=== PATIENT | male | born 1995 | race Caucasian/White ===

== ENCOUNTER 2020-12-20 18:30 | Emergency (ER) | payer MEDICAID ==
[~2020-12-20] VITALS: Ht 180.3 cm; Wt 79.1 kg
[2020-12-20 19:00] VITALS: BP 128/79
--- NOTE | 2020-12-20 19:04 | NUR ---
PT TO WAIT IN LOBBY
--- NOTE | 2020-12-20 20:46 | NUR ---
PT AMBULATED TO BED 11.
[2020-12-20 20:50] VITALS: BP 128/79
--- NOTE | 2020-12-20 20:50 | NUR ---
25 YO M BIB SELF WITH C/C OF R ANKLE PAIN 8/10 S/P INJURY WHILE RUNNING X1 WK. PT STATES IT HURTS MORE WHEN HE PUTS WEIGHTS ON FOOT, BETTER WHEN SITTING. TOOK IBUPROFEN FOR PAIN, SOMEWHAT HELPED PER PT. DENIES HX AND RX. NKA
[2020-12-20] MEDS ORDERED: IBUP-2213 PO (21:16)
[2020-12-20] MEDS ORDERED: ACET-8386 PO (21:16)
--- NOTE | 2020-12-20 21:38 | NUR ---
Patient discharged with v/s stable. Written and verbal after care instructions given and explained. Patient alert, oriented and verbalized understanding of instructions. Ambulatory with steady gait. All questions addressed prior to discharge. ID band removed. Patient advised to follow up with PMD. Rx of NORCO AND MOTRIN given. Patient educated on indication of medication including possible reaction and side effects. Opportunity to ask questions provided and answered.
== END 2020-12-20 21:38 | disposition home or self-care (01) ==
LOC: MED 18:30
DX: S93.401A Sprain of unspecified ligament of right ankle, initial encounter (principal); F12.90 Cannabis use, unspecified, uncomplicated; W19.XXXA Unspecified fall, initial encounter; Y93.89 Activity, other specified; Y92.89 Other specified places as the place of occurrence of the external cause; Y99.8 Other external cause status
CPT/HCPCS: 73610; 73630; 99284